=== PATIENT | female | born 2000 | race Caucasian/White ===

== ENCOUNTER 2023-11-26 17:39 | Inpatient (IN) ==
[2023-11-26 18:31] LABS: Appearance Urine Clear (Clear); Bilirubin Urine Negative (Negative); Blood Urine Negative (Negative); Color Urine Yellow; Glucose Urine UA Negative (Negative); Ketones Urine 2+ (Negative); Leukocyte Esterase Urine Negative (Negative); Nitrite Urine Negative (Negative); Protein Urine Negative (Negative); Specific Gravity Urine 1.023 (1.000-1.030); Urobilinogen Urine Negative (Negative); pH Urine 5.5 (4.5-7.5)
[2023-11-26 18:34] LABS: Basophils # (auto) 0.06 K/uL (0.00-0.20); Basophils % (auto) 0.6 %; Eosinophils # (auto) 0.08 K/uL (0.00-0.50); Eosinophils % (auto) 0.7 %; Hematocrit (blood only) 42.6 % (37.0-47.0); Immature Granulocytes # (auto) 0.05 K/uL (0.01-0.20); Immature Granulocytes % (auto) 0.5 %; Lymphocytes # (auto) 3.03 K/uL (1.20-3.40); Lymphocytes % (auto) 28.1 %; Mean Corpuscular Hgb Conc 32.9 g/dL (32.0-36.0); Mean Corpuscular Volume 82.1 fL (80.0-100.0); Mean Platelet Volume 9.7 fL (9.4-12.4); Monocytes % (auto) 6.5 %; Neutrophils # (auto) 6.85 K/uL (1.40-6.50); Neutrophils % (auto) 63.6 %; Platelet Count 299 K/uL (130-400); RDW Coefficient of Variation 13.5 % (11.5-14.5); RDW Standard Deviation 39.7 fL (36.4-46.3); Red Blood Count 5.19 M/uL (4.20-5.40); White Blood Count 10.77 K/ul (4.8-10.8)
[2023-11-26 18:45] LABS: Pregnancy Test, Serum Negative (Negative)
--- NOTE | 2023-11-26 18:49 | Emergency Department Note ---
Impression & Plan Mood disorder, Suicidal ideation ED Provider Note NAME: DAYSI BROWN AGE: 22 SEX: Female INFORMANT: Patient ED PROVIDER(S): Adrien Sinha MD CHIEF COMPLAINT: Mental health evaluation PLAN: Disposition: Admitted Outpatient prescription management: none Referral: None MEDICAL DECISION MAKING: Patient was evaluated upon arrival. She was quite distraught with her symptoms. Her laboratory testing revealed an unremarkable CBC and chemistry panel. Patient had a negative urinalysis. COVID testing negative. Patient was evaluated by ED psychiatric egg caser. Referral was made to [address] [place] [address]. Patient was evaluated in the emergency department by 3 and was excepted for voluntary psychiatric admission. Care/management discussed with: ED psychiatric egg caser Level of care consideration(s): After review of the information above and other included data, I feel the patient requires escalation of care to admission. Triage Nursing notes: reviewed and agree them. Vital Signs: reviewed and remarkable for no significant abnormalities Additional History obtained from: none Chronic Medical/Social Conditions affecting care: Anxiety, depression Prior/ Outside/ External records reviewed: none Differential Diagnosis: Mood disorder, infection, hypoglycemia, electrolyte abnormalities, cardiac sources, intracerebral event, toxicologic, trauma, neurologic, as well as other pathologies. Diagnostics, independently interpreted by me: ECG: none Cardiac Monitoring: none Medical decision rules: none Imaging studies: Deferred HPI: 22 year old Female arrives for mental health evaluation. Friend of the patient called police due to concerns for welfare check. Patient was having thoughts of wanting to get in an accident and feeling overwhelmed. The patient also notes the following associated symptoms, poor sleep, but poor appetite, anxiety, depression, lack of initiative or concentration, low energy. The patient has noted no relieving factors. Current pain is rated as 0/10. Patient noted flulike illness 2 weeks ago but that resolved spontaneously. Denies any current medical issues. Does note occasional alcohol use socially. Patient does note she has been using marijuana daily to help with her mood. Patient did journal that she had thoughts of self-harm and felt guilty about not contacting her therapist. Pt denies LOC, headache, fevers, chills, diaphoresis, visual changes, neck pain, chest pain, breathing difficulties, nausea, vomiting, abdominal pain, back pain, melena, hematochezia, urinary symptoms, numbness, weakness, lymphadenopathy, rash, or other complaints. . PAST MEDICAL HISTORY: See Below, anxiety, depression PAST SURGICAL HISTORY: See Below, SOCIAL HISTORY: See Below, occasional alcohol. [employer] student. HOME MEDICATIONS: See Below ALLERGIES: See Below VITALS: See Below PHYSICAL EXAMINATION: GENERAL: Awake, alert, tearful, crying, depressed-appearing, in no distress HENT: Normocephalic, atraumatic. Oropharynx unremarkable. EYES: Normal conjunctiva. Sclera non-icteric. EOMI. Pupils equal and round NECK: Inspection normal. Non-tender. Supple. No nuchal rigidity. FROM. No masses. RESPIRATORY: Clear to auscultation. No wheezes. No rales. Normal respiratory effort. CARDIAC: Normal rate. Normal rhythm. No murmurs. No rubs. Extremities warm and well perfused. Pulses equal. No JVD. GI: Soft, non-distended. No tenderness to palpation. No rebound or guarding. No masses. RECTAL: Deferred. MUSCULOSKELETAL: Atraumatic. Chest examination reveals no tenderness. The back is symmetrical on inspection without obvious abnormality. There is no CVA tenderness to palpation. No joint edema. LOWER EXTREMITIES: Calves are equal size bilaterally and non-tender. No edema. No discoloration. NEURO: Normal sensorium. No sensory or motor deficits noted. Cranial nerves II through XII intact. Speech normal. No drift. SKIN: No rash or jaundice noted. PROCEDURES: none CRITICAL CARE: none OBSERVATION NOTE: none Past Med/Surg History Social History Smoking Status: Never smoker Tobacco Type: E-cigarettes / Vaping Preferred Language: Luxembourgish Communication Ability: Effective Delicatessen Clerk Required: No Beliefs That Will Affect Care: None Feels Safe at Home: Yes Gender Identity: Female Assistive Devices: None Allergies Allergies Allergy/AdvReac Type Severity Reaction Status Date / Time latex Allergy Rash Verified 11/26/23 18:20 Sulfa (Sulfonamide Allergy Rash Verified 11/26/23 18:20 Antibiotics) Home Meds Home Medications Medication Instructions Recorded Confirmed escitalopram oxalate 10 mg tablet 10 mg PO DAILY 11/26/23 11/26/23 (Lexapro) lisdexamfetamine 30 mg capsule 30 mg PO DAILY 11/26/23 11/26/23 (Vyvanse) Results & Data (ED) Vital Signs Vital Signs - 24 hr 11/26/23 17:40 11/26/23 22:38 Temperature 36.6 C Temperature Source Oral Pulse Rate 82 Pulse Rate [Finger] 90 Respiratory Rate 16 18 Respiratory Effort / Characteristics Non-Labored Non-Labored Respiratory Depth Normal Normal Respiratory Pattern Regular Regular Blood Pressure 136/83 Blood Pressure [Right Arm] 114/79 Blood Pressure Mean 100 Blood Pressure Mean [Right Arm] 90 Pulse Oximetry 95 97 Oxygen Delivery Method Room Air Room Air Sepsis Recent Fever Within 48 Hours No Sepsis New/Unexplained Change in Mental Status N/A Sepsis Action Taken by Nursing No Action Required Laboratory Data 11/26/23 18:05 11/26/23 18:05 Lab Results 11/26/23 11/26/23 Range/Units 17:51 18:05 WBC 10.77 (4.8-10.8) K/ul RBC 5.19 (4.20-5.40) M/uL Hgb 14.0 (12.0-16.0) g/dl Hct 42.6 (37.0-47.0) % MCV 82.1 (80.0-100.0) fL MCH 27.0 (25.0-34.0) pg MCHC 32.9 (32.0-36.0) g/dL RDW Std Deviation 39.7 (36.4-46.3) fL RDW Coeff of Naveen 13.5 (11.5-14.5) % Plt Count 299 (130-400) K/uL MPV 9.7 (9.4-12.4) fL Immature Gran % (Auto) 0.5 % Neut % (Auto) 63.6 % Lymph % (Auto) 28.1 % [place] % (Auto) 6.5 % Eos % (Auto) 0.7 % Baso % (Auto) 0.6 % Neut # (Auto) 6.85 H (1.40-6.50) K/uL Lymph # (Auto) 3.03 (1.20-3.40) K/uL [place] # (Auto) 0.70 H (0.11-0.59) K/uL Eos # (Auto) 0.08 (0.00-0.50) K/uL Baso # (Auto) 0.06 (0.00-0.20) K/uL Immature Gran # (Auto) 0.05 (0.01-0.20) K/uL Sodium 140 (136-145) mmol/L Potassium 4.0 (3.5-5.1) mmol/L Chloride 105 (98-107) mmol/L Carbon Dioxide 23 (21-32) mmol/L Anion Gap 12 H (3-11) BUN 18 (6-23) mg/dl Creatinine 0.83 (0.6-1.2) mg/dl Est Cr Clr Drug Dosing 127.5 ml/min Est GFR ( Amer) 117.7 ml/min Est GFR (Non-Af Amer) 101.5 ml/min BUN/Creatinine Ratio 21.7 H (10-20) Glucose 80 (70-99(Fasting)) mg/dl Calcium 9.6 (8.6-10.3) mg/dl Total Bilirubin 0.5 (0.2-1.0) mg/dl AST 24 (13-39) U/L ALT 23 (7-52) U/L Alkaline Phosphatase 125 H (34-104) U/L Total Protein 7.5 (6.0-8.3) gm/dl Albumin 4.7 (3.4-5.0) gm/dl Globulin 2.8 (2.5-4.0) gm/dl Albumin/Globulin Ratio 1.7 (0.9-2) TSH 0.596 (0.300-4.500) uIu/ml HCG, Qual Negative (Negative) Urine Color Yellow Urine Appearance Clear (Clear) Urine pH 5.5 (4.5-7.5) Ur Specific [place] 1.023 (1.000-1.030) Urine Protein Negative (Negative) Urine Glucose (UA) Negative (Negative) Urine Ketones 2+ H (Negative) Urine Blood Negative (Negative) Urine Nitrite Negative (Negative) Urine Bilirubin Negative (Negative) Urine Urobilinogen Negative (Negative) Ur Leukocyte Esterase Negative (Negative) Salicylates < 3.0 L (3.0-30) mg/dl Urine Opiates Screen Neg (Neg) Ur Methadone, Qual Neg (Neg) Acetaminophen < 3 L (10-30) ug/ml Urine Barbiturates Neg (Neg) Ur Phencyclidine (PCP) Neg (Neg) U Amphetamin/Meth Scrn Neg (Neg) MDMA (Ecstasy) Screen Neg (Neg) U Benzodiazepines Scrn Neg (Neg) Ur Cocaine Metabolite Neg (Neg) U Marijuana (THC) Screen Pos H (Neg) Ethyl Alcohol mg/dL < 10.0 (<10.0) mg/dl SARS-CoV-2, RNA, NAAT NEGATIVE (NEGATIVE) Discharge Plan Visit Data Chief Complaint: Mental Health Evaluation Stated Complaint: MENTAL HEALTH EXAM ED Provider: Adrien Sinha Discharge Problem: Mood disorder, Suicidal ideation
[2023-11-26 18:51] LABS: Albumin Globulin Ratio 1.7 (0.9-2); Albumin Level 4.7 gm/dl (3.4-5.0); BUN Creatinine Ratio 21.7 (10-20); Bilirubin,Total 0.5 mg/dl (0.2-1.0); Calcium 9.6 mg/dl (8.6-10.3); Creatinine Clr Calc Pharmacy 127.5 ml/min; Est GFR (African American) 117.7 ml/min; Est GFR (Non-African American) 101.5 ml/min; Globulin 2.8 gm/dl (2.5-4.0); Total Protein 7.5 gm/dl (6.0-8.3)
[2023-11-26 19:02] LABS: Thyroid Stimulating Hormone 0.596 uIu/ml (0.300-4.500)
[2023-11-26 19:03] LABS: Acetaminophen < 3 ug/ml (10-30); Salicylate < 3.0 mg/dl (3.0-30)
[2023-11-26 19:03] LABS: Amphetamines+Metham, Urine Neg (Neg); Barbiturates, Urine Neg (Neg); Benzodiazepine, Urine Neg (Neg); Cocaine, Urine Neg (Neg); MDMA (Ecstacy), Urine Neg (Neg); Marijuana, Urine Pos (Neg); Methadone, Urine Neg (Neg); Opiate, Urine Neg (Neg); Phencyclidine, Urine Neg (Neg)
[2023-11-27] MEDS ORDERED: SODIUM CHLORIDE 0.65% NA SOLN 45 ML (OCEAN) PRN (00:33)
[2023-11-27] MEDS ORDERED: ACETAMINOPHEN 325 MG TAB PO PRN (00:33)
[2023-11-27] MEDS ORDERED: hydrOXYzine HCl 25 MG TAB PO PRN (00:33)
[2023-11-27] MEDS ORDERED: ALUMINUM/MAGNESIUM SUSP 30 ML UDC PO PRN (00:33)
[2023-11-27] MEDS ORDERED: MAGNESIUM HYDROXIDE SUSP 30 ML UDC PO PRN (00:33)
[2023-11-27] MEDS ORDERED: BISMUTH SUBSALICYLATE LIQD 236 ML PO PRN (00:33)
--- NOTE | 2023-11-27 13:05 | History & Physical ---
Date of Service November 27, 2023 Impression / Recommendations Impression 22 yo female with a history of depression, anxiety, self-medication with alcohol and MJ, and recent dx of ADHD. It is unclear how much of her current social anxiety is driven by her low self-esteem/depression vs. a separate social anxiety disorder. Her panic attacks seem to be overwhelm rather than denovo but will continue to consider panic disorder but seems like anxious distress specifier. Patient will be monitored for symptoms of alcohol withdrawal but unlikely to need formal SS protocol. Patient meets screening criteria for problematic alcohol and MJ use. Again, seems most consistent with severe depre ssion but will consider co-morbid substance use disorders. Overall, I spent a total of 78 minutes with this case, including review of chart, review of surscripts records, direct evaluation of the patient, counseling the patient, coordination with nursing and social work, risk assessment, brief intervention and documentation. (1) Major depressive disorder with current active episode: Plan The patient was admitted to the [facility]) on q15 min checks (behavioral with suicide precautions) for safety. The patient will participate in group, recreational, and milieu therapies and will be offered additional individual and family sessions as clinically appropriate. Patient is rather ambivalent about resuming Lexapro trial and will be offered prn Vistaril and allow for a period of monitoring and adjustment to treatment setting. The patient's AUDIT score suggests problematic drinking ([place] WHO) and she admits to daily use of MJ. Brief intervention was offered and accepted. Intervention was greater than 5 min in length and included assessing readiness to cut back and advice on how substances impact mood. body and fender worker will also assist in anticipating barriers to sobriety and in problem-solving for solutions to those problems while arranging for referral to appropriate treatment. The patient is in contemplation stage with regards to transtheoretical model of change. The patient is advised to decrease alcohol and MJ consumption due to depressant effects and risk of interaction with prescription medications. The patient agrees she would like to decrease reliance on self-medication and will incorporate healthier coping skills into treatment plan. Inventory Assets Strengths: intelligent, help seeking Needs: improve coping skills, education on binge drinking and MJ use Suicide Risk Level Suicide Risk Level: High-Moderate (q15 min suicide checks) Risk Factors Assessment : Yes Do You Have Access To A Gun?: No Mental Health Diagnoses: Yes Previous Attempt: No Previous Psychiatric Hospitalization: No Protective Factors Assessment Employed: No Stable Relationships: Yes Supportive Family: Yes Psychiatric History Identifying Data DAYSI BROWN is a 22-year-old F [employer] from [place] (though parents now reside in [facility]) and was admitted on 11/27/23 00:00 on a 201 voluntary commitment for SI with plan. Chief Complaint "I just get very overwhelmed, thought of having a car accident. I'm just so involved in alot of stuff, I'm a people pleaser so it's hard to stop". History of Present Illness As per ED physician: 22 year old Female arrives for mental health evaluation. Friend of the patient called police due to concerns for welfare check. Patient was having thoughts of wanting to get in an accident and feeling overwhelmed. The patient also notes the following associated symptoms, poor sleep, but poor appetite, anxiety, depression, lack of initiative or concentration, low energy. The patient has noted no relieving factors. Current pain is rated as 0/10. Patient noted flulike illness 2 weeks ago but that resolved spontaneously. Denies any current medical issues. Does note occasional alcohol use socially. Patient does note she has been using marijuana daily to help with her mood. Patient did journal that she had thoughts of self-harm and felt guilty about not contacting her therapist. Today Daysi confirms her vegetative symptoms as well as social anxiety and breakthrough panic attacks. She admits to self-medication with ETOH and MJ last semester to attempt to remediate her symptoms. She's unsure why she has been inconsistent with her recent medications other than has a history of side effects or non response and is just unmotivated. She reported daily use of MJ, including her pen throughout the day and realizes "it's not helping." This week she has drank daily for 4-8 drinks. She denies a history of alcohol withdrawal or seizure. She described a busy schedule of various club in an attempt to feel worthy by serving others and has little to no down time to process outside of classes. She has been seeing her current therapist for about a year and has been inconsistent with this over holiday break as "I was doing worse." Daysi reports onset of mood and anxiety symptoms since at least high school and feels her executive functioning has been a concern in college classes. She was recently diagnosed with ADHD via an intake at [facility] and was offered stimulant trials with no perceived benefit. She denies ever having psychological testing and we reviewed that it is very difficult to definitively diagnose ADHD in the setting of active depressive disorder and that mood and anxiety would be the focus on her inpatient stay. Past Psychiatric History Current Psychiatric Diagnosis: SI Outpatient Services: Jose Ben[facility]te[facility] ([facility]) Previous Psych Admissions: none Do You Have Access To A Gun?: No History of Previous Suicide Attempt: No Past Medication Trials: Surescripts indicates meds trials back to March 2023 with sertaline (didn't like way felt, decreased libido), Prozac (unclear length of trial), Lexapro 5 mg then 10 mg recently but never consistently atomoxetine, Concerta up to 36 mg, Vyvanse 20 then 30 mg daily Past Head Trauma/Neuro History History of Concussion/Seizure: No Allergies Allergy/AdvReac Type Severity Reaction Status Date / Time latex Allergy Rash Verified 11/26/23 18:20 Sulfa (Sulfonamide Allergy Rash Verified 11/26/23 18:20 Antibiotics) Home Medications Medication Instructions Recorded Confirmed Type escitalopram oxalate 10 mg tablet 10 mg PO DAILY 11/26/23 11/26/23 History (Lexapro) lisdexamfetamine 30 mg capsule 30 mg PO DAILY 11/26/23 11/26/23 History (Vyvanse) Family History Family History of: None Family Mental Health History Comment: "probably, undiagnosed, yes" Alcohol History Hx of Alcohol Use Over the Past 12 Months: Yes (increased past week to daily mixed drink) AUDIT Total Score: 14 Smoking Use Have You Smoked or Used Tobacco Products in the Last 30 Days: No Smoking Status: Never smoker Substance History Hx of Prescription Med Misuse Over the Past 12 Months: No Hx of Over the Counter Med Misuse Over the Past 12 Months: No Hx of Inhalent Misuse Over the Past 12 Months: No Hx of Organic Substance Use Over the Past 12 Months: Yes (THC - vape (not prescribed) - daily) Hx of Illegal Substances/Street Drug Use Over Past 12 Months: No Problems as a Result of Past Substance Use: None Identified Personal History Living Arrangements: Apartment Highest Grade Completed: College Highest Grade Completed Comment: jr at [employer]- "its going" Marital Status: Single Number Of Children: 0 Beliefs That Will Affect Care: None Current Legal Problems: No Hx Traumatic Life Events: No Patient History Medical History (Updated 11/27/23 @ 13:17 by Amber Anaya MD) No active medical problems Social History Smoking Status: Never smoker Tobacco Type: E-cigarettes / Vaping Preferred Language: [place]orese Communication Ability: Effective Genetic Coordinator Required: No Beliefs That Will Affect Care: None Feels Safe at Home: Yes Gender Identity: Female Assistive Devices: None Review of Systems Review of Systems: All systems reviewed & are unremarkable except as noted in HPI & below Physical Exam Psychiatric: Orientation: alert and oriented x 3 Apperance: appropriately dressed and appropriately groomed Eye Contact: good eye contact Motor Behavior: no abnormal motor movements Speech: normal rate/rhythm/volume of speech Affect: + depressed affect and + tearful affect Mood: + depressed mood Thought Process: goal directed thought process Thought Content: reality based without delusions Suicidal Thoughts: denies suicidal intent; + reports suicidal thoughts and + reports suicidal plan (but not on unit) Homicidal Thoughts: denies homicidal thoughts Hallucinations: no auditory hallucinations and no visual hallucinations Cognition: attention grossly intact and language grossly intact Estimated Intelligence: consistent with education level Insight: + limited insight Judgment: + limited judgement Vital Signs (Past 24 Hours): Last Vital Signs Temp 36.4 C 11/27/23 06:00 Pulse 96 H 11/27/23 06:38 Resp 16 11/27/23 06:00 BP 135/84 11/27/23 06:38 Pulse Ox 97 11/27/23 01:15 O2 Del Method Room Air 11/27/23 01:15 Exam Statement: A physical exam was performed in the ED by Dr. Sinha for the purposes of medical clearance. I accept that physical as correct and adequate for the purposes of the inpatient physical exam. Results & Data ([facility]) Laboratory Results Laboratory Results - last 24 hr 11/26/23 11/26/23 17:51 18:05 WBC 10.77 RBC 5.19 Hgb 14.0 Hct 42.6 MCV 82.1 MCH 27.0 MCHC 32.9 RDW Std Deviation 39.7 RDW Coeff of [place]ave[place] 13.5 Plt Count 299 MPV 9.7 Immature Gran % (Auto) 0.5 Neut % (Auto) 63.6 Lymph % (Auto) 28.1 [place] % (Auto) 6.5 Eos % (Auto) 0.7 Baso % (Auto) 0.6 Neut # (Auto) 6.85 H Lymph # (Auto) 3.03 [place] # (Auto) 0.70 H Eos # (Auto) 0.08 Baso # (Auto) 0.06 Immature Gran # (Auto) 0.05 Sodium 140 Potassium 4.0 Chloride 105 Carbon Dioxide 23 Anion Gap 12 H BUN 18 Creatinine 0.83 Est Cr Clr Drug Dosing 127.5 Est GFR ( Amer) 117.7 Est GFR (Non-Af Amer) 101.5 BUN/Creatinine Ratio 21.7 H Glucose 80 Calcium 9.6 Total Bilirubin 0.5 AST 24 ALT 23 Alkaline Phosphatase 125 H Total Protein 7.5 Albumin 4.7 Globulin 2.8 Albumin/Globulin Ratio 1.7 TSH 0.596 HCG, Qual Negative Urine Color Yellow Urine Appearance Clear Urine pH 5.5 Ur Specific [place] 1.023 Urine Protein Negative Urine Glucose (UA) Negative Urine Ketones 2+ H Urine Blood Negative Urine Nitrite Negative Urine Bilirubin Negative Urine Urobilinogen Negative Ur Leukocyte Esterase Negative Salicylates < 3.0 L Urine Opiates Screen Neg Ur Methadone, Qual Neg Acetaminophen < 3 L Urine Barbiturates Neg Ur Phencyclidine (PCP) Neg U Amphetamin/Meth Scrn Neg MDMA (Ecstasy) Screen Neg U Benzodiazepines Scrn Neg Ur Cocaine Metabolite Neg U Marijuana (THC) Screen Pos H U Marijuana THC Carboxy Pending Drug Screen Comment Pending Ethyl Alcohol mg/dL < 10.0 SARS-CoV-2, RNA, NAAT NEGATIVE Current Inpatient Medications Current Inpatient Medications: Current Inpatient Medications Acetaminophen (Acetaminophen 325 Mg Tab) 650 mg PO Q4H PRN PRN Reason: Headache or Minor Fever Stop: 12/27/23 00:32 Al Hydrox/Mg Hydrox/Simethicone (Aluminum/Magnesium Susp 30 Ml Udc) 30 ml PO Q4H PRN PRN Reason: GI Upset Stop: 12/27/23 00:32 Bismuth Subsalicylate (Bismuth Subsalicylate Liqd 236 Ml) 15 ml PO PRN PRN PRN Reason: Loose Stool Stop: 12/27/23 00:32 Hydroxyzine HCl (Hydroxyzine Hcl 25 Mg Tab) 50 mg PO HSZ PRN PRN Reason: Insomnia Stop: 12/27/23 00:32 Hydroxyzine HCl (Hydroxyzine Hcl 25 Mg Tab) 25 mg PO Q4H PRN PRN Reason: Anxiety Stop: 12/27/23 00:32 Magnesium Hydroxide (Magnesium Hydroxide Susp 30 Ml Udc) 30 ml PO DAILY PRN PRN Reason: Constipation Stop: 12/27/23 00:32 Sodium Chloride (Sodium Chloride 0.65% Na Soln 45 Ml ([place])) 1 - 2 sprays NA PRN PRN PRN Reason: Nasal Dryness/Congestion Stop: 12/27/23 00:32
--- NOTE | 2023-11-28 11:57 | Psychiatric Progress Note ---
Date of Service November 28, 2023 Impression / Recommendations Impression 22 yo female with a history of depression, anxiety, self-medication with alcohol and MJ, and recent dx of ADHD. It is unclear how much of her current social anxiety is driven by her low self-esteem/depression vs. a separate social anxiety disorder. Her panic attacks seem to be overwhelm rather than denovo but will continue to consider panic disorder but seems like anxious distress specifier. Patient will be monitored for symptoms of alcohol withdrawal but unlikely to need formal AWSS protocol. Patient meets screening criteria for problematic alcohol and MJ use. Again, seems most consistent with severe depre ssion but will consider co-morbid substance use disorders. Overall, I spent a total of 40 minutes with this case, including review of chart, ordering meds, direct evaluation of the patient, counseling the patient, coordination with nursing and social work, and documentation. (1) Major depressive disorder with current active episode: Plan 11/28/23: Risks/benefits/alternatives reviewed re: antidepressants for the treatment of depression and/or anxiety. Discussion included but was not limited to FDA warnings re: suicidality in adolescents and young adults. The patient agreed to resume Lexapro 10 mg as it was well tolerated before she became noncompliant and to complete the trial. She preferred this over an SNRI or Wellbutrin trial as familiar with the medication and understands that Wellbutrin could be added later to address any sexual side effects or residual focus issues. 11/27/23: The patient was admitted to the [facility] ([facility] mental health unit) on q15 min checks (behavioral with suicide precautions) for safety. The patient will participate in group, recreational, and milieu therapies and will be offered additional individual and family sessions as clinically appropriate. Patient is rather ambivalent about resuming Lexapro trial and will be offered prn Vistaril and allow for a period of monitoring and adjustment to treatment setting. The patient's AUDIT score suggests problematic drinking (Zone III WHO) and she admits to daily use of MJ. Brief intervention was offered and accepted. Intervention was greater than 5 min in length and included assessing readiness to cut back and advice on how substances impact mood. behavioral health worker will also assist in anticipating barriers to sobriety and in problem-solving for solutions to those problems while arranging for referral to appropriate treatment. The patient is in contemplation stage with regards to transtheoretical model of change. The patient is advised to decrease alcohol and MJ consumption due to depressant effects and risk of interaction with prescription medications. The patient agrees she would like to decrease reliance on self-medication and will incorporate healthier coping skills into treatment plan. Inventory Assets Strengths: intelligent, help seeking Needs: improve coping skills, education on binge drinking and MJ use Suicide Risk Level Suicide Risk Level: High-Moderate (q15 min suicide checks) Risk Factors Assessment : Yes Do You Have Access To A Gun?: No Mental Health Diagnoses: Yes Previous Attempt: No Previous Psychiatric Hospitalization: No Protective Factors Assessment Employed: No Stable Relationships: Yes Supportive Family: Yes Interval History Identifying Information DAYSI BROWN is a 22-year-old F [employer] from [place] (though parents now reside in [facility]) and was admitted on 11/27/23 00:00 on a 201 voluntary commitment for SI with plan. Chief Complaint "It's hard to cut back, I have so much imposter syndrome." Review of Systems Sleep Information Total Hours of Sleep: 7.5 Sleep Comments: Overnight admission Meal Information Percent Meal Consumed - Breakfast: 90 Percent Meal Consumed - Lunch: 90 Percent Meal Consumed - Dinner: 80 Subjective Subjective Patient was seen & assessed and interval progress reviewed with nursing and social work. The patient has been adjusting the unit, would like to commit to taking medication consistently. Recognizes that her anxiety and overwhelm is due to overscheduling and then buffering but "change is scary." She is attending groups and relating well to peers. Physical Exam Psychiatric Orientation: alert and oriented x 3 Apperance: appropriately dressed and appropriately groomed Eye Contact: good eye contact Motor Behavior: no abnormal motor movements Speech: normal rate/rhythm/volume of speech Affect: + depressed affect and + tearful affect Mood: + depressed mood Thought Process: goal directed thought process Thought Content: reality based without delusions Suicidal Thoughts: denies suicidal intent; + reports suicidal thoughts and + reports suicidal plan (but not on unit) Homicidal Thoughts: denies homicidal thoughts Hallucinations: no auditory hallucinations and no visual hallucinations Cognition: attention grossly intact and language grossly intact Estimated Intelligence: consistent with education level Insight: + limited insight Judgment: + limited judgement Vital Signs (Past 24 Hours) Last Vital Signs Temp 36.2 C L 11/28/23 06:14 Pulse 88 11/28/23 06:14 Resp 16 11/28/23 06:14 BP 107/68 11/28/23 06:14 Pulse Ox 98 11/28/23 06:14 O2 Del Method Room Air 11/28/23 06:14 Results & Data ([facility]) Current Inpatient Medications Current Inpatient Medications: Current Inpatient Medications Acetaminophen (Acetaminophen 325 Mg Tab) 650 mg PO Q4H PRN PRN Reason: Headache or Minor Fever Stop: 12/27/23 00:32 Al Hydrox/Mg Hydrox/Simethicone (Aluminum/Magnesium Susp 30 Ml Udc) 30 ml PO Q4H PRN PRN Reason: GI Upset Stop: 12/27/23 00:32 Bismuth Subsalicylate (Bismuth Subsalicylate Liqd 236 Ml) 15 ml PO PRN PRN PRN Reason: Loose Stool Stop: 12/27/23 00:32 Escitalopram Oxalate (Escitalopram Oxalate 10 Mg Tab) 10 mg PO DAILY CIPRIANO Stop: 12/28/23 11:14 Hydroxyzine HCl (Hydroxyzine Hcl 25 Mg Tab) 50 mg PO HSZ PRN PRN Reason: Insomnia Stop: 12/27/23 00:32 Hydroxyzine HCl (Hydroxyzine Hcl 25 Mg Tab) 25 mg PO Q4H PRN PRN Reason: Anxiety Stop: 12/27/23 00:32 Magnesium Hydroxide (Magnesium Hydroxide Susp 30 Ml Udc) 30 ml PO DAILY PRN PRN Reason: Constipation Stop: 12/27/23 00:32 Sodium Chloride (Sodium Chloride 0.65% Na Soln 45 Ml ([place])) 1 - 2 sprays NA PRN PRN PRN Reason: Nasal Dryness/Congestion Stop: 12/27/23 00:32 Mental Health & Subst Abuse Tx Psychiatrist Name of Psychiatrist: Jeyson Lau Psychiatrist's Psychiatric Appointment Comment: [address] [place], [place] Therapist Name of Therapist: Rina Davis Therapist's Air Quality Engineer Name of Air Quality Engineer: [employer] [facility] [employer] [facility] Phone Number for Air Quality Engineer: [phone] Case Management Appointment Comment: Zoom link will be sent to [employer] email Post Discharge Appointments Primary Care Physician Name Of Family Doctor/PCP: [facility] Primary Care Time of Appointment with PCP: Please follow up as needed Provider Appointment Comment: [facility]
[2023-11-28] MEDS: ESCITALOPRAM OXALATE 10 MG TAB PO SCH (13:17)
[2023-11-28] MEDS: hydrOXYzine HCl 25 MG TAB PO PRN (21:49)
[2023-11-29] MEDS: ESCITALOPRAM OXALATE 10 MG TAB PO SCH (08:39)
--- NOTE | 2023-11-29 12:56 | Psychiatric Progress Note ---
Date of Service November 29, 2023 Impression / Recommendations Impression 22 yo female with a history of depression, anxiety, self-medication with alcohol and MJ, and recent dx of ADHD. Her social anxiety seems driven by her low self- esteem/depression vs. a separate social anxiety disorder. Her panic attacks seem to be overwhelm rather than denovo. Patient met screening criteria for problematic alcohol and MJ use, again seems most consistent with depression with buffering/self-med vs. substance use disorders. Overall, I spent a total of 33 minutes with this case, including review of chart, direct evaluation of the patient, counseling the patient, interdisciplinary tx team, and documentation. (1) Major depressive disorder with current active episode: Plan 11/29/23: continue current meds and tx plan, safety planning meeting. 11/28/23: Risks/benefits/alternatives reviewed re: antidepressants for the treatment of depression and/or anxiety. Discussion included but was not limited to FDA warnings re: suicidality in adolescents and young adults. The patient agreed to resume Lexapro 10 mg as it was well tolerated before she became noncompliant and to complete the trial. She preferred this over an SNRI or Wellbutrin trial as familiar with the medication and understands that Wellbutrin could be added later to address any sexual side effects or residual focus issues. 11/27/23: The patient was admitted to the [facility] ([facility]) on q15 min checks (behavioral with suicide precautions) for safety. The patient will participate in group, recreational, and milieu therapies and will be offered additional individual and family sessions as clinically appropriate. Patient is rather ambivalent about resuming Lexapro trial and will be offered prn Vistaril and allow for a period of monitoring and adjustment to treatment setting. The patient's AUDIT score suggests problematic drinking (Zone III WHO) and she admits to daily use of MJ. Brief intervention was offered and accepted. Intervention was greater than 5 min in length and included assessing readiness to cut back and advice on how substances impact mood. facilities maintenance worker will also assist in anticipating barriers to sobriety and in problem-solving for solutions to those problems while arranging for referral to appropriate treatment. The patient is in contemplation stage with regards to transtheoretical model of change. The patient is advised to decrease alcohol and MJ consumption due to depressant effects and risk of interaction with prescription medications. The patient agrees she would like to decrease reliance on self-medication and will incorporate healthier coping skills into treatment plan. Inventory Assets Strengths: intelligent, help seeking Needs: improve coping skills, education on binge drinking and MJ use Suicide Risk Level Suicide Risk Level: Moderate (q15 min suicide checks) Risk Factors Assessment : Yes Do You Have Access To A Gun?: No Mental Health Diagnoses: Yes Previous Attempt: No Previous Psychiatric Hospitalization: No Protective Factors Assessment Employed: No Stable Relationships: Yes Supportive Family: Yes Interval History Identifying Information DAYSI BROWN is a 22-year-old F [employer] from [place] (though parents now reside in [facility]) and was admitted on 11/27/23 00:00 on a 201 voluntary commitment for SI with plan. 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 family meeting with mother today to plan her schedule/courses/activities to decrease stress upon transition from the hospital. Yesterday had a fleeting thought about hurting self at the construction site by her apartment but more in the context of feeling that way prior to stay and discussed thought can and can't control, intent, and plan. She tolerated restart of Lexapro and problem solved how to use pill minder/keep near toothbrush to improve compliance. Physical Exam Psychiatric Orientation: alert and oriented x 3 Apperance: appropriately dressed and appropriately groomed Eye Contact: good eye contact Motor Behavior: no abnormal motor movements Speech: normal rate/rhythm/volume of speech Affect: + depressed affect Mood: + depressed mood Thought Process: goal directed thought process Thought Content: reality based without delusions Suicidal Thoughts: denies suicidal thoughts, denies suicidal plan and denies suicidal intent Homicidal Thoughts: denies homicidal thoughts Hallucinations: no auditory hallucinations and no visual hallucinations Cognition: attention grossly intact and language grossly intact Estimated Intelligence: consistent with education level Vital Signs (Past 24 Hours) Last Vital Signs Temp 35.9 C L 11/29/23 06:00 Pulse 71 11/29/23 06:05 Resp 16 11/29/23 06:00 BP 111/78 11/29/23 06:05 Pulse Ox 98 01/14/24 06:14 O2 Del Method Room Air 11/28/23 06:14 Results & Data ([facility]) Current Inpatient Medications Current Inpatient Medications: Current Inpatient Medications Acetaminophen (Acetaminophen 325 Mg Tab) 650 mg PO Q4H PRN PRN Reason: Headache or Minor Fever Stop: 12/27/23 00:32 Al Hydrox/Mg Hydrox/Simethicone (Aluminum/Magnesium Susp 30 Ml Udc) 30 ml PO Q4H PRN PRN Reason: GI Upset Stop: 12/27/23 00:32 Bismuth Subsalicylate (Bismuth Subsalicylate Liqd 236 Ml) 15 ml PO PRN PRN PRN Reason: Loose Stool Stop: 12/27/23 00:32 Escitalopram Oxalate (Escitalopram Oxalate 10 Mg Tab) 10 mg PO DAILY CIPRIANO Stop: 12/28/23 11:14 Last Admin: 11/29/23 08:39 Dose: 10 mg Hydroxyzine HCl (Hydroxyzine Hcl 25 Mg Tab) 50 mg PO HSZ PRN PRN Reason: Insomnia Stop: 12/27/23 00:32 Last Admin: 11/28/23 21:49 Dose: 50 mg Hydroxyzine HCl (Hydroxyzine Hcl 25 Mg Tab) 25 mg PO Q4H PRN PRN Reason: Anxiety Stop: 12/27/23 00:32 Magnesium Hydroxide (Magnesium Hydroxide Susp 30 Ml Udc) 30 ml PO DAILY PRN PRN Reason: Constipation Stop: 12/27/23 00:32 Sodium Chloride (Sodium Chloride 0.65% Na Soln 45 Ml ([place])) 1 - 2 sprays NA PRN PRN PRN Reason: Nasal Dryness/Congestion Stop: 12/27/23 00:32 Mental Health & Subst Abuse Tx Psychiatrist Name of Psychiatrist: Jeyson Lau Psychiatrist's Date Of Appointment With Psychiatric Provider: 12/16/23 Time of Appointment with Psychiatrist: 9:15 AM Psychiatric Appointment Comment: [address] [place], [place] Therapist Name of Therapist: Trini Davis Therapist's Therapy Appointment Comment: Please contact directly to schedule. Cook Relief Name of Cook Relief: [facility] Phone Number for Cook Relief: [phone] Case Management Appointment Comment: Zoom link will be sent to [employer] email. Post Discharge Appointments Primary Care Physician Name Of Family Doctor/PCP: [facility] Primary Care Time of Appointment with PCP: Please follow up as needed Provider Appointment Comment: [facility]
[2023-11-29 15:12] LABS: Marijuana Quant, GCMS Urine 60 ng/mL (<5)
[2023-11-29] MEDS: hydrOXYzine HCl 25 MG TAB PO PRN (20:58)
[2023-11-30] MEDS: ESCITALOPRAM OXALATE 10 MG TAB PO SCH (08:46)
--- NOTE | 2023-11-30 10:56 | Discharge Summary ---
Date of Service November 30, 2023 History of Present Illness As per ED physician: 22 year old Female arrives for mental health evaluation. Friend of the patient called police due to concerns for welfare check. Patient was having thoughts of wanting to get in an accident and feeling overwhelmed. T he patient also notes the following associated symptoms, poor sleep, but poor appetite, anxiety, depression, lack of initiative or concentration, low energy. The patient has noted no relieving factors. Current pain is rated as 0/10. Patient noted flulike illness 2 weeks ago but that resolved spontaneously. Denies any current medical issues. Does note occasional alcohol use socially. Patient does note she has been using marijuana daily to help with her mood. Patient did journal that she had thoughts of self-harm and felt guilty about not contacting her therapist. Today Vianney confirms her vegetative symptoms as well as social anxiety and breakthrough panic attacks. She admits to self-medication with ETOH and MJ last semester to attempt to remediate her symptoms. She's unsure why she has been inconsistent with her recent medications other than has a history of side effects or non response and is just unmotivated. She reported daily use of MJ, including her pen throughout the day and realizes "it's not helping." This week she has drank daily for 4-8 drinks. She denies a history of alcohol withdrawal or seizure. She described a busy schedule of various club in an attempt to feel worthy by serving others and has little to no down time to process outside of classes. She has been seeing her current therapist for about a year and has been inconsistent with this over holiday break as "I was doing worse." Vianney reports onset of mood and anxiety symptoms since at least high school and feels her executive functioning has been a concern in college classes. She was r ecently diagnosed with ADHD via an intake at [facility] and was offered stimulant trials with no perceived benefit. She denies ever having psychological testing and we reviewed that it is very difficult to definitively diagnose ADHD in the setting of active depressive disorder and that mood and anxiety would be the focus on her inpatient stay. Physical Exam Psychiatric See admission H&P and DOD assessment. Vital Signs (Past 24 Hours) Last Vital Signs Temp 35.9 C L 11/30/23 06:00 Pulse 86 11/30/23 06:22 Resp 16 11/30/23 06:00 BP 93/63 L 11/30/23 06:22 Pulse Ox 98 11/28/23 06:14 O2 Del Method Room Air 11/28/23 06:14 Principal Diagnosis major depressive disorder Psychiatric Data See daily stay summary. In short, safety was maintained and the patient was cooperative with care. Medication changes included resuming her trial of Lexapro and they tolerated this well. A family session was held and safety plan was completed prior to discharge which included taking a break from her sample tailor to allow for more unstructured and self-care time in the afternoons as currently overscheduled. She did not require prns during stay but requested a short supply of Vistaril in case of emergency. Patient agreed not to combine with alcohol or other sedating substances and already refrains from driving when she is upset. She plans to return to school with close family support with plans for an extended weekend home before officially returning to classes next week. Day of Discharge Assessment Today the patient voices readiness for discharge. They note improvement in mood and deny thoughts to harm self or others. Thoughts remain organized and they are improved from admission. There is no evidence of psychosis. They agree to take mediations as prescribed and keep follow-up appointments. They are stable for discharge to outpatient level of care. Transition of Care Transition Of Care Record: was reviewed with the patient Advance Directives Advance Directives Information Provided: Yes Advance Directives: No Mental Health Advance Directive: No Advance Directives on File: No Living Will: No Power of Show Girl: No Advance Directives Reason:: Declines as Mental Health Visit. Suicide Risk Level Suicide Risk Level Comments: Suicide risk at discharge is deemed low as the patient is no longer requiring 24-hr monitoring, has a safety plan, and is free of suicidal ideation at discharge. Risk Factors Assessment : Yes Do You Have Access To A Gun?: No Mental Health Diagnoses: Yes Previous Attempt: No Previous Psychiatric Hospitalization: No Protective Factors Assessment Employed: No Stable Relationships: Yes Supportive Family: Yes Tobacco Cessation at Discharge Tobacco Cessation Medication Prescribed at Discharge: Not Applicable/Non-Smoker Total Time Total Time Spent: Greater Than 30 Minutes (34 min) Total Time Includes: Examination of the patient, Discharge Planning and Medication Reconciliation Discharge Data Lab Results 11/26/23 11/26/23 17:51 18:05 WBC 10.77 RBC 5.19 Hgb 14.0 Hct 42.6 MCV 82.1 MCH 27.0 MCHC 32.9 RDW Std Deviation 39.7 RDW Coeff of Naveen 13.5 Plt Count 299 MPV 9.7 Immature Gran % (Auto) 0.5 Neut % (Auto) 63.6 Lymph % (Auto) 28.1 [place] % (Auto) 6.5 Eos % (Auto) 0.7 Baso % (Auto) 0.6 Neut # (Auto) 6.85 H Lymph # (Auto) 3.03 [place] # (Auto) 0.70 H Eos # (Auto) 0.08 Baso # (Auto) 0.06 Immature Gran # (Auto) 0.05 Sodium 140 Potassium 4.0 Chloride 105 Carbon Dioxide 23 Anion Gap 12 H BUN 18 Creatinine 0.83 Est Cr Clr Drug Dosing 127.5 Est GFR ( Amer) 117.7 Est GFR (Non-Af Amer) 101.5 BUN/Creatinine Ratio 21.7 H Glucose 80 Calcium 9.6 Total Bilirubin 0.5 AST 24 ALT 23 Alkaline Phosphatase 125 H Total Protein 7.5 Albumin 4.7 Globulin 2.8 Albumin/Globulin Ratio 1.7 TSH 0.596 HCG, Qual Negative Urine Color Yellow Urine Appearance Clear Urine pH 5.5 Ur Specific [place] 1.023 Urine Protein Negative Urine Glucose (UA) Negative Urine Ketones 2+ H Urine Blood Negative Urine Nitrite Negative Urine Bilirubin Negative Urine Urobilinogen Negative Ur Leukocyte Esterase Negative Salicylates < 3.0 L Urine Opiates Screen Neg Ur Methadone, Qual Neg Acetaminophen < 3 L Urine Barbiturates Neg Ur Phencyclidine (PCP) Neg U Amphetamin/Meth Scrn Neg MDMA (Ecstasy) Screen Neg U Benzodiazepines Scrn Neg Ur Cocaine Metabolite Neg U Marijuana (THC) Screen Pos H U Marijuana THC Carboxy 60 H Drug Screen Comment SEE NOTE Ethyl Alcohol mg/dL < 10.0 SARS-CoV-2, RNA, NAAT NEGATIVE Hospital Course (1) Major depressive disorder with current active episode: Plan 11/29/23: continue current meds and tx plan, safety planning meeting. 11/28/23: Risks/benefits/alternatives reviewed re: antidepressants for the treatment of depression and/or anxiety. Discussion included but was not limited to FDA warnings re: suicidality in adolescents and young adults. The patient agreed to resume Lexapro 10 mg as it was well tolerated before she became noncompliant and to complete the trial. She preferred this over an SNRI or Wellbutrin trial as familiar with the medication and understands that Wellbutrin could be added later to address any sexual side effects or residual focus issues. 11/27/23: The patient was admitted to the [facility] ([facility]) on q15 min checks (behavioral with suicide precautions) for safety. The patient will participate in group, recreational, and milieu therapies and will be offered additional individual and family sessions as clinically appropriate. Patient is rather ambivalent about resuming Lexapro trial and will be offered prn Vistaril and allow for a period of monitoring and adjustment to treatment setting. The patient's AUDIT score suggests problematic drinking (Zone III WHO) and she admits to daily use of MJ. Brief intervention was offered and accepted. Intervention was greater than 5 min in length and included assessing readiness to cut back and advice on how substances impact mood. relay worker will also assist in anticipating barriers to sobriety and in problem-solving for solutions to those problems while arranging for referral to appropriate treatment. The patient is in contemplation stage with regards to transtheoretical model of change. The patient is advised to decrease alcohol and MJ consumption due to depressant effects and risk of interaction with prescription medications. The patient agrees she would like to decrease reliance on self-medication and will incorporate healthier coping skills into treatment plan. Mental Health & Subst Abuse Tx Psychiatrist Name of Psychiatrist: Jeyson Lau Psychiatrist's Date Of Appointment With Psychiatric Provider: 12/16/23 Time of Appointment with Psychiatrist: 9:15 AM Psychiatric Appointment Comment: [address] [place], [place] Therapist Name of Therapist: Trini Davis Therapist's Therapy Appointment Comment: Please contact directly to schedule. Steel Pourer Name of Steel Pourer: [facility] Phone Number for Steel Pourer: [phone] Case Management Appointment Comment: Zoom link will be sent to U email. Post Discharge Appointments Primary Care Physician Name Of Family Doctor/PCP: [facility] Primary Care Time of Appointment with PCP: Please follow up as needed Provider Appointment Comment: [facility] Smoking Cessation Counseling Tobacco Cessation Medication Prescribed at Discharge: Not Applicable/Non-Smoker Discharge Plan Discharge Items Patient Disposition: Home - Self-Care Reason For Visit: MAJOR DEPRESSIVE DISORDER Discharge Diagnosis: majord Activity: Resume your previous activity Non-emergency contact: Primary Care Provider, Psychiatrist and Therapist Call non-emergency contact if: you have any medication questions and your symptoms worsen Follow-up/Referrals: PCP,NO [Primary Care Provider] - Diet: Regular Addtl Attending Provider Instructions: SPECIAL CARE INSTRUCTIONS: 1. Follow through with your scheduled aftercare appointments. If unable to keep an appointment, please call to reschedule. 2. Take your medication only as prescribed. Medication should not be changed or stopped without the approval of your doctor. In the event of worsening symptoms or concerns about side effects, contact your doctor immediately. 3. Utilize new healthy coping skills, anger management skills, and stress management skills learned during your hospitalization. Journal feelings and process them with a support person. Identify stressors or situations that may result in relapse, deterioration or inappropriate behaviors and develop a plan to deal with those issues. 4. If your coping skills are ineffective and you are in crisis, contact your outpatient providers for direction. If unable to reach your providers, please call the [facility] CRISIS LINE AT , go to the [facility] walk-in center at [address] [place] [address], [address], [place], or go to the closest Emergency Room. 5. Avoid alcohol and un-prescribed drugs. 6. You have been provided with the Mental Health Advance Directives Pamphlet for your review. 7. Your condition is stable for discharge to outpatient level of care, but recovery is an ongoing process. Ifthoughts to harm yourself or others return, follow the safety plan developed during your stay. Planning for a safe return home includes securing weapons. Our treatment team recommends weaponsbe removed from the home until your outpatient provider reassesses your progress. In rare cases where the items themselvescannot be removed, guns and ammunitionshould be secured separatelyand keys stored by a reliable personoutside of the home. If you were admitted on an involuntary commitment, the police or other legal authorities may be involved in this process. AFTERCARE APPOINTMENTS: * Please call your insurance company prior to your scheduled appointment to confirm your aftercare providers are covered. Take your insurance information to your appointments. WHO TO CALL AND WHEN: Medical Emergencies: For questions or emergencies related to your hospital stay, please contact the Inpatient Behavioral Health Unit at [phone]. A psychiatric nursing aide is on-call 07/06 for the Behavioral Health Unit for emergencies At any time you feel your situation is an emergency, you may also call 911 immediately. Pending Studies at Discharge: No Stand-Alone Forms: [facility], Smoking Cessation Medications and DC Order Prescriptions: New hydroxyzine HCl 25 mg tablet 25 mg PO Q6 PRN (Reason: panic attack(s)) Qty: 10 0RF Rx Instructions: aware patient on lexapro, both low dose, reviewed QTc warnings Continued escitalopram oxalate [Lexapro] 10 mg tablet 10 mg PO DAILY Qty: 30 0RF Discontinued lisdexamfetamine [Vyvanse] 30 mg capsule 30 mg PO DAILY Discharge Orders: Discharge Order (Routine); Ordered 11/30/23 Ordered By: Amber Anaya Admission Data Admit Date/Time: 11/27/23 00:00 Attending Provider: Amber Anaya Admit Provider: Amber Anaya Primary Care Provider: PCP,NO Other Interventions: Discharge Summary Assessment (RN) Last Done: 11/30/23 12:50 Coding Level of Care Code 10949 D/C day mgmt > 30 min Diagnoses Major depressive disorder with current active episode F32.9
== END 2023-11-30 16:30 | disposition home or self-care (01) | DRG 881 ==
LOC: ED 17:39 → 3S 11-27